=== PATIENT | male | born 1975 | race Caucasian/White ===

== ENCOUNTER 2020-09-14 09:05 | Emergency (ER) | payer OTHER, SELFPAY ==
[2020-09-14 09:05] VITALS: BP 169/90; PULSE 76; RESP 16; TEMP 35.9; O2SAT 99; BMI 36.9
--- NOTE | 2020-09-14 09:27 | ED.DCSUM_ITS ---
History of Present Illness Chief Complaint: Syncope Informant: Patient Narrative: 44-year-old male presenting with episodes of near syncope. He states this started this morning while he was at work. He states he was not exerting himself. He is also states that he had to let himself down. He does not recall if he hit his head. He has no visual disturbances. Patient does state that he has had a headache for the last week which feels like pressure. He has been taking Aleve for this. He has no history of migraine. He has mild nausea. He is not had fever, chills, cough, change in taste or smell. Patient does relate that he faints easy in the past. He states that usually when he is outside working in the heat however he was not doing that today. He states he is been eating and drinking normally. Is making normal urine and stool. Past Medical History - Allergies and Home Meds Allergies/Adverse Reactions: Allergies No Known Allergies Allergy (Verified 09/14/20 09:09) Primary Care Physician: Care Physician,No Primary [Primary Care Provider] - Smoking Status: Never smoker Review of Systems General: Denies: Chills, Fever Eyes: Denies: Visual changes - bilaterally, Diplopia ENT: Denies: Rhinorrhea, Sore throat Cardiovascular: Denies: Chest pain, Palpitations Respiratory: Denies: Dyspnea, Cough Gastrointestinal: Reports: Nausea. Denies: Abdominal pain, Vomiting, Diarrhea, Constipation Genitourinary: Denies: Dysuria, Hematuria Musculoskeletal: Denies: Myalgias, Arthralgias Skin: Denies: Rash, Abscess Neurological: Reports: Headache. Denies: Parasthesia, Numbness Psych: Denies: Depression, Anxiety Endocrine: Denies: Polyuria, Polydipsia Physical Exam Vital Signs/Narrative: Vital Signs Temp Pulse Resp BP Pulse Ox 09/14/20 09:05 96.6 F L 76 16 169/90 H 99 General: Well nourished, No Acute Distress Head: Normocephalic, Atraumatic Eyes: Perrl, EOMI. Negative for: Pale conjunctiva ENT: Moist mucous membranes, No rhinorrhea Cardiovascular: Regular rate, Regular rhythm Respiratory: No distress, CTA bilaterally, Chest nontender Abdomen: Soft, Nontender, Nondistended Extremities: Nontender, No edema Skin: Normal color, No rash. Negative for: Cyanosis, Diaphoresis Neurological: Alert, Oriented x3, Cranial nerves II-XII grossly intact Psychological: Normal affect, Normal Mood Diagnostic/Tx/Re-eval Clinical Impression(s) from Imaging Studies Cervical Spine CT 09/14/20 09:31 IMPRESSION: Cervical spine acutely intact Cervical straightening with minimal degenerative features Posterior soft tissue swelling Electronically Signed: Adrien Chow DO at 10:27 EST Tel , Service support , Chest X-Ray 09/14/20 10:05 IMPRESSION: No acute pulmonary process Electronically Signed: Anderson Fullre MD at 10:28 EST , Service support , Brain CT 09/14/20 10:06 IMPRESSION: Normal unenhanced CT scan of the brain. Electronically Signed: Anderson Fuller MD at 10:23 EST , Service support , Laboratory Data 09/14/20 09/14/20 09:08 09:08 WBC 9.6 RBC 5.01 Hgb 13.9 Hct 43.3 MCV 86.4 MCH 27.7 MCHC 32.1 RDW Std Deviation 41.2 RDW Coeff of Saqib 13.2 Plt Count 368 MPV 9.2 Immature Gran % (Auto) 0.600 Neut % (Auto) 70.3 H Lymph % (Auto) 16.3 L [place] % (Auto) 5.2 Eos % (Auto) 6.6 H Baso % (Auto) 1.0 Absolute Neuts (auto) 6.8 Absolute Lymphs (auto) 1.57 Nucleated RBC % 0 Sodium 140 Potassium 4.3 Chloride 108 H Carbon Dioxide 27.0 Anion Gap 5 BUN 15 Creatinine 1.05 Estim Creat Clear Calc 86.86 Est GFR (MDRD) Af Amer 98 Est GFR (MDRD) Non-Af 81 BUN/Creatinine Ratio 14.3 Glucose 116 H Calcium 8.4 L Troponin I < 0.015 - Rhythm Strip Rhythm Strip: Sinus Rhythm Rate: 74 - EKG Initial EKG Interpretation: Sinus Rhythm, No Acute Injury Pattern - Medical Decision Making 4-year-old male presenting with syncopal episodes. He is not sure if he hit his head. Patient states he has been known to faint in the past but usually worse when he is overworked. EKG performed on arrival and interpreted by myself shows normal sinus rhythm at 74 bpm without any other abnormalities. X-ray is interpreted by myself shows no acute cardiopulmonary process and radiology does agree. CT of the brain and cervical spine are negative for acute abnormalities. Patient's blood work including CBC, BMP, troponin within normal limits. Patient's orthostatic vitals were negative. On reevaluation patient is feeling well. He was given a migraine cocktail for his headache. He is counseled to follow-up with his primary care physician on outpatient basis. He is given return precautions. Patient stable discharge at this time. Impression: 1. Headache 2. Syncope ED Disposition - Plan for ED Patient: Disposition: Home or Assisted Living Instructions: ED Fainting, Uncertain Cause Referrals: Care Physician,No Primary [Primary Care Provider] -
--- NOTE | 2020-09-14 09:29 | EKG12_ITS ---
Test Reason : Blood Pressure : / mmHG Vent. Rate : 074 BPM Atrial Rate : 074 BPM P-R Int : 148 ms QRS Dur : 100 ms QT Int : 380 ms P-R-T Axes : 043 017 040 degrees QTc Int : 421 ms Normal sinus rhythm Normal ECG Confirmed by JAYY MELOL, MOHAN ([id number]), web editor MADHU MANRIQUE ([id number]) on 09/18/2020 10:45:31 AM Referred By: RADHA Confirmed By:VIVIAN HOPE MD
--- NOTE | 2020-09-14 09:31 | CT_ITS ---
STUDY: CT CERVICAL SPINE WITHOUT CONTRAST REASON FOR EXAM: Male, 44 years old. Syncope RADIATION DOSAGE (If Supplied By Facility): CTDIvol = ( 28.11 ) mGy, DLP = ( 707.28 ) mGycm TECHNIQUE: High resolution transaxial imaging was performed without contrast material. Sagittal and coronal images were reconstructed. Individualized dose optimization techniques were used for this CT. COMPARISON: None FINDINGS: Please see dedicated brain CT scan. No acute cervical spine fracture, dislocation or osseous destruction. Visualized ribs intact. Visualized clavicle is intact. Normal bilateral lung apices. Mild posterior soft tissue swelling. Skull base intact. Symmetric mastoid air cells. Cervical straightening. No significant scoliosis. Craniocervical and atlantoaxial articulation are intact. Odontoid intact. Mild endplate spondylosis. No spondylolisthesis. No significant facet joint arthrosis. Minimal disc height loss. No significant central canal or neural foraminal narrowing. Disc/osteophyte complex most pronounced at the C6-[address]/Spine Cervical without Contras IMPRESSION: Cervical spine acutely intact Cervical straightening with minimal degenerative features Posterior soft tissue swelling Electronically Signed: Adrien Chow DO at 10:27 EST Tel , Service support ,
[2020-09-14 09:42] LABS: Absolute Lymphocyte Count 1.57 X10^3/uL (0.83-4.51); Absolute Neutrophil Count 6.8 X10^3/uL (2.0-7.7); Eosinophil# 0.64 X10^3/uL; Eosinophils% 6.6 % (0-5); Hematocrit 43.3 % (40-54); Hemoglobin 13.9 g/dL (13.0-16.5); Lymphocyte # 1.57 X10^3/ul (4.0); Lymphocyte % 16.3 % (19-41); Mean Corp Hgb Conc 32.1 g/dL (32-36); Mean Corpuscular Hgb 27.7 pg (27.0-32.0); Mean Corpuscular Volume 86.4 fL (80-94); Mean Platelet Vol. 9.2 fl (6.2-12.0); Monocyte% 5.2 % (0-10); NRBC Flagged by Analyzer 0 % (0-5); Neutrophil # 6.77 X10^3/uL (2.7-7.7); Neutrophil % 70.3 % (47-70); Platelet Count 368 K/mm3 (150-450); RBC Distribution Width CV 13.2 % (11.6-14.6); RBC Distribution Width SD 41.2 fl (35.1-43.9); Red Blood Count 5.01 M/mm3 (4.6-6.2); White Blood Count 9.6 K/mm3 (4.4-11.0)
[2020-09-14 09:53] LABS: Anion Gap 5 (5-15); BUN 15 mg/dL (7-18); BUN/Creat Ratio 14.3 RATIO (10-20); Calcium,Total 8.4 mg/dL (8.5-10.1); Chloride 108 mmol/L (98-107); Creatinine, Serum 1.05 mg/dL (0.70-1.30); EST Glomerular Filtration Rate 81 mL/min (>60); Est Glom Filt Rate - Afr Amer 98 mL/min (>60); Estimated Creatinine Clearance 86.86 ml/min; Glucose 116 mg/dL (74-106); Potassium 4.3 mmol/L (3.5-5.1); Sodium Level 140 mmol/L (136-145)
[2020-09-14] MEDS: 0.9% Normal Saline 1,000 ML 1000 ML IV (09:55)
[2020-09-14] MEDS: Ondansetron 4 MG/2 ML Vial IV (09:55)
--- NOTE | 2020-09-14 10:05 | RAD_ITS ---
STUDY: X-RAY CHEST REASON FOR EXAM: Male, 44 years old. Syncopal episodes TECHNIQUE: Single AP portable view of the chest. COMPARISON: None. FINDINGS: EKG leads overlie the chest The lungs are clear and expanded. There is no demonstrated pleural abnormality. Normal size heart. Normal mediastinum and andreea. Normal visualized pulmonary arteries. Normal visualized aortic arch and descending thoracic aorta. There are diffuse degenerative changes of the visualized thoracic spine. Normal visualized ribs, clavicles, and shoulders. There is no demonstrated abnormality of the visualized soft tissue structures of the upper abdomen. RAD/Chest 1 View (Portable) IMPRESSION: No acute pulmonary process Electronically Signed: Anderson Fuller MD at 10:28 EST , Service support ,
--- NOTE | 2020-09-14 10:06 | CT_ITS ---
STUDY: CT BRAIN WITHOUT CONTRAST REASON FOR EXAM: Male, 44 years old. Syncope RADIATION DOSAGE (If Supplied By Facility): CTDIvol = ( 44.99 ) mGy, DLP = ( 796.11 ) mGycm TECHNIQUE: Transaxial CT imaging of the brain was performed without administration of intravenous contrast material. Individualized dose optimization techniques were used for this CT. COMPARISON: No relevant priors. FINDINGS: Normal soft tissue structures. Normal calvarium. Normal size ventricles and extra-axial spaces for the patient''s age. Normal white matter tracts of the cerebral hemispheres. Normal basal ganglia and thalami. Normal brainstem. Normal cerebellum. There is no intracranial hemorrhage. There are no findings of an acute ischemic infarction. Normal visualized paranasal sinuses. CT/Brain/Head without Contrast IMPRESSION: Normal unenhanced CT scan of the brain. Electronically Signed: Anderson Fuller MD at 10:23 EST , Service support ,
[2020-09-14 10:28] VITALS: BP 148/97; BP 156/97; BP 158/99; PULSE 80; PULSE 82
[2020-09-14 10:33] VITALS: BP 158/99; PULSE 77; RESP 18; O2SAT 96
[2020-09-14] MEDS: Metoclopramide 10 MG/2 ML Vial IV (11:40)
[2020-09-14] MEDS: Ketorolac 15 MG/ML Vial IV (11:40)
[2020-09-14] MEDS: DiphenhydrAMINE 50 MG/ML Syringe 25 MG IV (11:40)
[2020-09-14 11:41] VITALS: BP 167/74; PULSE 82; RESP 16; O2SAT 98
== END 2020-09-14 11:42 | disposition home or self-care (01) ==
PROVIDERS: Emergency Provider Student in an Organized Health Care Education/Training Program
DX: R51.9 Headache, unspecified (principal); R55 Syncope and collapse
CPT/HCPCS: 70450; 71045; 72125; 80048; 84484; 85025; 93005; 96361; 96374; 96375; 99285; J7030; A4216; J2405